=== PATIENT | male | born 1965 | race Caucasian/White ===

== ENCOUNTER 2018-12-10 16:48 | Outpatient (REF) | payer OTHER, SELFPAY ==
[2018-12-10 20:07] LABS: HCT 46.7 % (40.0-50.0); Mean Corp. HGB Concentration 34.3 g/dL (32.0-36.0); Mean Corpuscular Hemoglobin 30.5 pg (27.0-33.0); Mean Corpuscular Volume 89.1 fL (80-95); Mean Platelet Volume 10.6 fL (8.0-11.0); Platelet Count 277 x1000/uL (130-400); RBC 5.24 m/cumm (4.50-6.00); RBC Distribution Width 13.4 % (11.8-14.1); White Blood Cell Count 9.66 k/cumm (4.4-10.8)
== END 2018-12-10 17:08 ==
LOC: NCHCN 16:48
PROVIDERS: PCP Physician Assistant; Visit Provider Nurse Practitioner Family
DX: R10.31 Right lower quadrant pain (principal)
CPT/HCPCS: 85027

== ENCOUNTER 2019-05-03 12:31 | Outpatient (REF) | payer OTHER, SELFPAY ==
[2019-05-03 19:23] LABS: Hemoglobin A1C 6.1 % (4.5-6.2)
[2019-05-03 19:42] LABS: CREATININE 1.02 mg/dL (0.70-1.30); Calculated LDL 130 mg/dL; Cholesterol 224 mg/dL (<200); HDL Cholesterol 27 mg/dL (40-60); Triglyceride 338 mg/dL (<150)
[2019-05-06 12:08] LABS: PSA, Screening 0.3 ng/mL (0.0-3.5)
== END 2019-05-03 12:51 ==
LOC: NCHCN 12:31
PROVIDERS: PCP Internal Medicine; Visit Provider Internal Medicine
DX: E78.5 Hyperlipidemia, unspecified (principal); Z00.00 Encounter for general adult medical examination without abnormal findings; R73.9 Hyperglycemia, unspecified
CPT/HCPCS: 80061; 84153; 82565; 83036

== ENCOUNTER 2020-01-23 13:54 | Outpatient (REF) | payer SELFPAY ==
[2020-01-26 05:44] LABS: Patient Race White; SARS-CoV-2 RNA Undetected (Undetected); SARS-CoV-2 Specimen Source Nasal
== END 2020-01-23 14:14 ==
LOC: NCHCN 13:54
PROVIDERS: PCP Internal Medicine; Visit Provider Family Medicine
DX: Z20.828 Contact with and (suspected) exposure to other viral communicable diseases (principal)
CPT/HCPCS: U0003

== ENCOUNTER 2020-03-13 18:24 | Outpatient (REF) | payer OTHER, SELFPAY ==
[2020-03-16 09:53] LABS: SARS-CoV-2 RNA Not Detected (NotDetected); SARS-CoV-2 RNA Source Nasal/Nares
== END 2020-03-13 18:44 ==
LOC: NCHCN 18:24
PROVIDERS: PCP Internal Medicine; Visit Provider Family Medicine
DX: Z20.828 Contact with and (suspected) exposure to other viral communicable diseases (principal)
CPT/HCPCS: U0003

== ENCOUNTER 2020-04-07 21:55 | Outpatient (REF) | payer OTHER, SELFPAY ==
[2020-04-07 20:54] LABS: Abs Immature Grans 0.03 10^3/uL (0.0-0.06); Absolute Basophil Count 0.06 10^3/uL (0.0-0.2); Absolute Eosinophil Count 0.33 10^3/uL (0.0-0.7); Absolute Lymphocyte Count 2.05 10^3/uL (1.2-3.4); Absolute Monocyte Count 0.54 10^3/uL (0.1-0.8); Absolute Neutrophil Count 3.42 10^3/uL (1.2-6.7); Basophils % 0.9; Eosinophils % 5.1; HCT 47.1 % (40.0-50.0); HGB 15.9 g/dL (13.5-17.5); Immature Grans % 0.5; Lymphocytes % 31.9; MCH 31.1 pg (27.0-33.0); MCHC 33.8 % (32.0-36.0); Monocytes % 8.4; Neutrophils % 53.2; Nucleated RBC 0 %; Platelet Count 235 10^3/uL (130-400); RBC 5.12 10^6/uL (4.36-5.78); RDW 12.6 % (11.8-14.1); RDW-SD 42.8 fL; WBC 6.43 10^3/uL (4.4-10.8)
[2020-04-07 21:04] LABS: ALT 29 U/L (16-63); AST 18 U/L (15-37); Albumin 3.9 g/dL (3.4-5.0); Alkaline Phosphatase 101 U/L (46-116); BUN 18 mg/dL (7-18); Bilirubin, Total 0.7 mg/dL (0.2-1.0); CREATININE 1.24 mg/dL (0.70-1.30); Calcium 8.6 mg/dL (8.5-10.1); Chloride 103 mmol/L (98-107); Glucose 119 mg/dL (74-106); Potassium 4.3 mmol/L (3.5-5.1); Sodium 139 mmol/L (136-145); Total Protein 7.5 g/dL (6.4-8.2)
[2020-04-07 22:53] LABS: Hemoglobin A1C 5.7 % (<5.7)
== END 2020-04-07 22:15 ==
LOC: NCHCN 21:55
PROVIDERS: PCP Internal Medicine; Visit Provider Physician Assistant
DX: R73.03 Prediabetes (principal); Z01.818 Encounter for other preprocedural examination
CPT/HCPCS: 80053; 83036; 85025

== ENCOUNTER 2021-02-22 17:28 | Outpatient (REF) | payer OTHER, SELFPAY ==
--- OUTSIDE RECORDS SUMMARY | 2021-02-22 17:33 | XMS_ITS ---
:1965 Author Care Team Providers Name Role Phone LEIA HUMPHREYS MD Primary Care Provider [phone] Allergies Code Code System Name Reaction Severity Status Onset NKDA ? Medications Name Status Start Date Stop Date ? ? prednisone Active ? Not available Problems Name Status Onset Date Source ? Asthma Active 12/23/2019 ? Procedures Date Name Performed by ? ? Elbow Surgery Information not noelleai dax Notes: Left elbow fx w/surgery at age 15 01/29/2020 MRI, Shoulder, W/o Contrast [facility] (Internal) [address] [place] [address] (Work Place) Results Lab Results None recorded. Past Encounters 05/09/2020 Covid Vaccine: [address] [place] [address], Ph. 03/02/2020 Jefry Dumont MD: [address] [facility], [facility] [address], [place] [address], Ph. 12/23/2019 Jefry Dumont MD: [address] [facility], [facility] [address] [address], Ph. Social History Tobacco Smoking Status Never Smoker Vaccine List Vaccine Type COVID-19, mRNA, LNP-S, PF, 100 mcg/0.5 m L dose 05/07/2020?0.5 mL 06/22/2020?0.5 mL Plan of Care Reminders Provider Appointments None ? ? recorded. Lab None ? ? recorded. Referral None ? ? recorded. Procedures None ? ? recorded. Surgeries None ? ? recorded. Imaging None ? ? recorded. Vitals 03/02/2020 01:00PM Follow Up 30 Height Weight BMI 172.72 cm 116.48 kg 39 kg/m2 12/23/2019 03:15PM Consult 30 Height Weight BMI Blood Pressure 172.72 cm 112.04 kg 37.6 kg/m2 142/78 mm[Hg]
[2021-02-22 20:22] LABS: HCT 47.9 % (40.0-50.0); HGB 16.2 g/dL (13.5-17.5); MCH 31.3 pg (27.0-33.0); MCHC 33.8 % (32.0-36.0); MCV 92.5 fL (80-95); MPV 10.3 fL (8.0-11.0); Platelet Count 269 10^3/uL (130-400); RBC 5.18 10^6/uL (4.36-5.78); RDW 12.8 % (11.8-14.1); RDW-SD 43.7 fL
[2021-02-22 20:33] LABS: ALT 31 U/L (16-63); AST 19 U/L (15-37); Alkaline Phosphatase 104 U/L (46-116); BUN 19 mg/dL (7-18); Bilirubin, Total 0.7 mg/dL (0.2-1.0); CREATININE 1.1 mg/dL (0.70-1.30); Calcium 8.9 mg/dL (8.5-10.1); Chloride 103 mmol/L (98-107); Glucose 107 mg/dL (74-106); Potassium 4.4 mmol/L (3.5-5.1); Sodium 140 mmol/L (136-145)
== END 2021-02-22 17:29 | disposition home or self-care (01) ==
LOC: NCHCN 17:28
PROVIDERS: PCP Internal Medicine; Visit Provider Internal Medicine
DX: R73.03 Prediabetes (principal); E66.9 Obesity, unspecified; M53.3 Sacrococcygeal disorders, not elsewhere classified
CPT/HCPCS: 80053; 85027

== ENCOUNTER 2022-02-21 19:35 | Outpatient (REF) | payer OTHER, SELFPAY ==
[2022-02-21 20:19] LABS: Hemoglobin A1C 5.7 % (<5.7)
[2022-02-21 20:20] LABS: Anion Gap 9.6 mmol/L (3-11); BUN 19 mg/dL (7-18); CO2 26.4 mmol/L (21.0-32.0); CREATININE 1.2 mg/dL (0.70-1.30); Calcium 8.7 mg/dL (8.5-10.1); Calculated LDL 171 mg/dL (<100); Chloride 101 mmol/L (98-107); Cholesterol 257 mg/dL (<200); Estimated GFR 70.98 (mL/min/1.73m2); Glucose 132 mg/dL (74-106); HDL Cholesterol 35 mg/dL (40-60); Potassium 4.2 mmol/L (3.5-5.1); Sodium 137 mmol/L (136-145); Triglyceride 257 mg/dL (<150)
== END 2022-02-21 19:36 | disposition home or self-care (01) ==
LOC: NCHCN 19:35
PROVIDERS: PCP Internal Medicine; Visit Provider Internal Medicine
DX: I45.10 Unspecified right bundle-branch block (principal); R73.03 Prediabetes; F32.9 Major depressive disorder, single episode, unspecified
CPT/HCPCS: 80048; 80061; 83036

== ENCOUNTER 2023-03-13 16:35 | Outpatient (REF) | payer BC, SELFPAY ==
[2023-03-13 19:47] LABS: ALT 31 U/L (16-63); AST 22 U/L (15-37); Albumin 3.9 g/dL (3.4-5.0); Alkaline Phosphatase 131 U/L (46-116); Anion Gap 6.3 mmol/L (3-11); BUN 18 mg/dL (7-18); Bilirubin, Total 0.7 mg/dL (0.2-1.0); CO2 29.7 mmol/L (21.0-32.0); CREATININE 1.2 mg/dL (0.70-1.30); Calcium 9.4 mg/dL (8.5-10.1); Chloride 106 mmol/L (98-107); Estimated GFR 70.53 (mL/min/1.73m2); Glucose 158 mg/dL (74-106); Potassium 4.3 mmol/L (3.5-5.1); Sodium 142 mmol/L (136-145); TSH 1.47 uIU/mL (0.36-3.74); Total Protein 7.8 g/dL (6.4-8.2)
[2023-03-13 19:48] LABS: Hemoglobin A1C 6.5 % (<5.7)
[2023-03-13 19:50] LABS: Ferritin 272 ng/mL (26-388); Magnesium 2.3 mg/dL (1.8-2.4)
== END 2023-03-13 16:36 | disposition home or self-care (01) ==
LOC: NCHCN 16:35
PROVIDERS: PCP Internal Medicine; Visit Provider Internal Medicine
DX: G25.81 Restless legs syndrome (principal); R73.03 Prediabetes
CPT/HCPCS: 80053; 82728; 83036; 83735; 84443

== ENCOUNTER 2023-05-30 15:24 | Outpatient (REF) | payer BC, SELFPAY ==
[2023-05-30 19:31] LABS: HCT 46.7 % (40.0-50.0); HGB 16.2 g/dL (13.5-17.5); MCH 31.6 pg (27.0-33.0); MCHC 34.7 % (32.0-36.0); MCV 91 fL (80-95); MPV 10.4 fL (8.0-11.0); Platelet Count 259 10^3/uL (130-400); RBC 5.13 10^6/uL (4.36-5.78); RDW 12.8 % (11.8-14.1); RDW-SD 42.5 fL; WBC 10.12 10^3/uL (4.4-10.8)
[2023-05-30 20:20] LABS: Uric Acid 6.9 mg/dL (3.5-7.2)
== END 2023-05-30 15:25 | disposition home or self-care (01) ==
LOC: NCHCN 15:24
PROVIDERS: PCP Internal Medicine; Visit Provider Nurse Practitioner Family
DX: R53.81 Other malaise (principal); M25.571 Pain in right ankle and joints of right foot
CPT/HCPCS: 85027; 84550

== ENCOUNTER 2023-11-06 15:36 | Outpatient (REF) | payer BC, SELFPAY ==
[2023-11-06 20:05] LABS: HCT 51.6 % (40.0-50.0); HGB 17.3 g/dL (13.5-17.5); MCH 31.3 pg (27.0-33.0); MCHC 33.5 % (32.0-36.0); MCV 94 fL (80-95); MPV 10.2 fL (8.0-11.0); Platelet Count 271 10^3/uL (130-400); RBC 5.52 10^6/uL (4.36-5.78); RDW 13.6 % (11.8-14.1); WBC 6.12 10^3/uL (4.4-10.8)
[2023-11-06 20:18] LABS: Anion Gap 6.8 mmol/L (3-11); BUN 14 mg/dL (7-18); CO2 29.2 mmol/L (21.0-32.0); CREATININE 1.2 mg/dL (0.70-1.30); Calcium 9.2 mg/dL (8.5-10.1); Chloride 104 mmol/L (98-107); Glucose 115 mg/dL (74-106); Potassium 4.6 mmol/L (3.5-5.1); Sodium 140 mmol/L (136-145); Uric Acid 5.8 mg/dL (3.5-7.2)
== END 2023-11-06 15:37 | disposition home or self-care (01) ==
LOC: NCHCN 15:36
PROVIDERS: PCP Internal Medicine; Visit Provider Internal Medicine
DX: M10.9 Gout, unspecified (principal); R73.09 Other abnormal glucose
CPT/HCPCS: 80048; 85027; 84550

== ENCOUNTER 2024-09-02 16:10 | Outpatient (REF) | payer OTHER, SELFPAY ==
[2024-09-02 18:55] LABS: Abs Immature Grans 0.02 10^3/uL (0.0-0.06); Absolute Basophil Count 0.06 10^3/uL (0.0-0.2); Absolute Eosinophil Count 0.25 10^3/uL (0.0-0.7); Absolute Lymphocyte Count 1.35 10^3/uL (1.2-3.4); Absolute Monocyte Count 0.49 10^3/uL (0.1-0.8); Absolute Neutrophil Count 2.68 10^3/uL (1.2-6.7); Basophils % 1.2 %; Eosinophils % 5.2 %; HCT 47.5 % (40.0-50.0); Immature Grans % 0.4 %; Lymphocytes % 27.8 %; MCH 32.1 pg (27.0-33.0); MCHC 33.7 % (32.0-36.0); MCV 95 fL (80-95); MPV 10.1 fL (8.0-11.0); Monocytes % 10.1 %; Neutrophils % 55.3 %; Platelet Count 215 10^3/uL (130-400); RBC 4.99 10^6/uL (4.36-5.78); RDW 13.1 % (11.8-14.1); RDW-SD 46.4 fL; WBC 4.85 10^3/uL (4.4-10.8)
[2024-09-02 19:42] LABS: Anion Gap 7.9 mmol/L (3-11); BUN 20 mg/dL (7-18); CO2 25.1 mmol/L (21.0-32.0); Calcium 9.2 mg/dL (8.5-10.1); Calculated LDL 80 mg/dL (<100); Chloride 107 mmol/L (98-107); Cholesterol 147 mg/dL (<200); Estimated GFR 87.24 (mL/min/1.73m2); Glucose 128 mg/dL (74-106); HDL Cholesterol 44 mg/dL (>or=40); Sodium 140 mmol/L (136-145); Triglyceride 118 mg/dL (<150)
[2024-09-02 20:01] LABS: Uric Acid 4.3 mg/dL (3.5-7.2)
== END 2024-09-02 16:11 | disposition home or self-care (01) ==
LOC: NCHCN 16:10
PROVIDERS: PCP Internal Medicine; Visit Provider Internal Medicine
DX: Z87.39 Personal history of other diseases of the musculoskeletal system and connective tissue (principal); Z13.220 Encounter for screening for lipoid disorders
CPT/HCPCS: 80048; 80061; 84550; 85025